=== PATIENT | female | born 1995 | race Caucasian/White ===

== ENCOUNTER 2019-03-22 13:14 | Emergency (ER) | payer OTHER ==
[~2019-03-22] VITALS: Ht 165.1 cm; Wt 108.9 kg
[2019-03-22] MEDS ORDERED: EFFEXOR XR37.5 MG PO (13:47)
[2019-03-22] MEDS ORDERED: DEXILANT60 MG PO (13:47)
== END 2019-03-22 17:18 | disposition home or self-care (01) ==
LOC: ED 13:14
DX: S60.022A Contusion of left index finger without damage to nail, initial encounter (principal); Z20.5 Contact with and (suspected) exposure to viral hepatitis; K21.9 Gastro-esophageal reflux disease without esophagitis; J45.909 Unspecified asthma, uncomplicated; F32.9 Major depressive disorder, single episode, unspecified; F41.9 Anxiety disorder, unspecified; W22.8XXA Striking against or struck by other objects, initial encounter
CPT/HCPCS: 36415; 84460; 86703; 86707; 86803; 87350; 99283